=== PATIENT | female | born 1955 | race Caucasian/White ===

== ENCOUNTER 2023-05-07 08:06 | Emergency (ER) | payer MEDICARE ==
[2023-05-07] MEDS ORDERED: Albuterol/Ipratropium 3.0-0.5 MG/3 ML Neb Soln ONE (08:20)
[2023-05-07] MEDS ORDERED: Albuterol/Ipratropium 3.0-0.5 MG/3 ML Neb Soln NEB ONE (08:23)
[2023-05-07] MEDS ORDERED: predniSONE 20 MG Tab PO ONE (08:24)
== END 2023-05-07 09:00 | disposition home or self-care (01) ==
LOC: DL.ED 08:06
DX: R06.2 Wheezing (principal); I11.0 Hypertensive heart disease with heart failure; I50.9 Heart failure, unspecified; J44.9 Chronic obstructive pulmonary disease, unspecified; K21.9 Gastro-esophageal reflux disease without esophagitis; Z79.899 Other long term (current) drug therapy; Z79.82 Long term (current) use of aspirin; Z88.1 Allergy status to other antibiotic agents; Z88.5 Allergy status to narcotic agent
CPT/HCPCS: 94010; 94640; 94667; 99283; 99284; J7512; J7620-GY

== ENCOUNTER 2023-05-26 06:22 | Day surgery (SDC) | payer MEDICARE ==
[~2023-05-26 06:22] MED LIST: Dextrose 5%-0.45% NaCl 1,000 ML IV SCH
[2023-05-26] MEDS ORDERED: Midazolam 1 MG/ML 2 ML SDV ONE (06:43)
[2023-05-26] MEDS ORDERED: fentaNYL 100 MCG/2 ML SDV ONE (06:43)
[2023-05-26] MEDS ORDERED: fentaNYL 100 MCG/2 ML SDV IV ONE ×2 (07:22→07:23)
[2023-05-26] MEDS ORDERED: Midazolam 1 MG/ML 2 ML SDV IV ONE ×2 (07:24→07:25)
== END 2023-05-26 08:56 | disposition home or self-care (01) ==
LOC: DL.ENDO 06:22
PROVIDERS: ATTEND Internal Medicine Gastroenterology
DX: K29.50 Unspecified chronic gastritis without bleeding (principal); Z98.84 Bariatric surgery status; K21.9 Gastro-esophageal reflux disease without esophagitis; F41.9 Anxiety disorder, unspecified; E78.5 Hyperlipidemia, unspecified; I27.20 Pulmonary hypertension, unspecified; Z79.899 Other long term (current) drug therapy
CPT/HCPCS: 43239; 87077; 88305; 88342; J2250; J3010; J7042

== ENCOUNTER 2023-10-11 12:59 | Emergency (ER) | payer MEDICARE ==
[2023-10-11] MEDS: Metoclopramide 10 MG/2 ML SDV IM ONE (16:13)
== END 2023-10-11 16:37 | disposition home or self-care (01) ==
LOC: DL.ED 12:59
DX: G44.52 New daily persistent headache (NDPH) (principal); I11.0 Hypertensive heart disease with heart failure; I50.9 Heart failure, unspecified; E78.00 Pure hypercholesterolemia, unspecified; J44.9 Chronic obstructive pulmonary disease, unspecified; K21.9 Gastro-esophageal reflux disease without esophagitis; F17.210 Nicotine dependence, cigarettes, uncomplicated; Z86.16 Personal history of COVID-19; Z88.8 Allergy status to other drugs, medicaments and biological substances; Z88.5 Allergy status to narcotic agent; Z79.82 Long term (current) use of aspirin; Z79.51 Long term (current) use of inhaled steroids; Z79.899 Other long term (current) drug therapy; Z90.49 Acquired absence of other specified parts of digestive tract
CPT/HCPCS: 96372; 99283; J2765

== ENCOUNTER 2024-01-24 08:06 | Emergency (ER) | payer MEDICARE ==
[2024-01-24] MEDS ORDERED: Sodium Chloride 0.9% 10 ML Syringe FLUSH PRN ×2 (08:26→08:35)
[2024-01-24 08:34] LABS: BASOPHILS PERCENT AUTO 0.2 % (0.0-1.0); EOSINOPHILS PERCENT AUTO 2.4 % (1.0-3.0); HEMATOCRIT 49.7 % (37.0-47.0); HEMOGLOBIN 16.2 g/dL (12.0-16.0); LYMPHOCYTES PERCENT AUTO 24.3 % (20.5-50.1); MEAN CORPUSCULAR HEMOGLOBIN 32.4 pg (27.0-34.0); MEAN CORPUSCULAR HGB CONC 32.6 g/dL (33.0-35.0); MEAN CORPUSCULAR VOLUME 99.4 fL (80-100); MONOCYTES PERCENT AUTO 6.3 % (2-8); NEUTROPHILS PERCENT AUTO 66.8 % (42.2-75.2); PLATELET COUNT,PLT 223 10^3/uL (150-450); WHITE BLOOD CELL COUNT,WBC 8.7 10^3/uL (5.0-10.0)
[2024-01-24] MEDS: Aspirin 81 MG Tab.Chew PO ONE (08:37)
[2024-01-24] MEDS: Heparin Sodium 5,000 Units/ML Vial IVPUSH ONE (08:47)
[2024-01-24 08:49] LABS: A/G RATIO 0.92; ALANINE AMINOTRANSFERASE,ALT 18 U/L (14-59); ALBUMIN 3.3 g/dL (3.4-5.0); ALKALINE PHOSPHATASE 93 U/L (46-116); ANION GAP 12.6 mEq/L (7-13); ASPARTATE AMNIOTRANSFERASE,AST 24 U/L (15-37); BILIRUBIN TOTAL 0.5 mg/dL (0.2-1.0); BLOOD UREA NITROGEN,BUN 19 mg/dL (7-18); BUN/CREATININE RATIO 17.9 (No establ ref range); CALCIUM 9.2 mg/dL (8.5-10.1); CARBON DIOXIDE,CO2 30 mmol/L (21-32); CHLORIDE,CL 103 mmol/L (98-107); CREATININE 1.06 mg/dL (0.55-1.02); ESTIMATED GFR 57 mL/min (>=60); GLUCOSE RANDOM 113 mg/dL (70-99); LIPASE 25 U/L (16-77); POTASSIUM,K 4.6 mmol/L (3.5-5.1); PROTEIN TOTAL,TP 6.9 g/dL (6.4-8.2); SODIUM,NA 141 mmol/L (136-145)
[2024-01-24] MEDS ORDERED: Heparin Sodium/0.45% NaCl 500 ML ONE (08:51)
[2024-01-24 08:52] LABS: B-TYPE NATRIURETIC PEPTIDE,BNP 141 pg/ml (0-100)
[2024-01-24] MEDS: Heparin Sodium/0.45% NaCl 25,000 UNITS/500 ML BAG IV SCH (09:00)
[2024-01-24 09:02] LABS: PROTHROMBIN TIME 10.4 SEC (9.0-12.0); PTT,PARTIAL THROMBOPLSTIN TIME 27.2 SEC (22.0-34.0)
== END 2024-01-24 10:14 ==
LOC: DL.ED 08:06
DX: I21.3 ST elevation (STEMI) myocardial infarction of unspecified site (principal); I11.0 Hypertensive heart disease with heart failure; I50.9 Heart failure, unspecified; E78.00 Pure hypercholesterolemia, unspecified; J44.9 Chronic obstructive pulmonary disease, unspecified; K21.9 Gastro-esophageal reflux disease without esophagitis; M19.90 Unspecified osteoarthritis, unspecified site; Z90.49 Acquired absence of other specified parts of digestive tract; Z79.899 Other long term (current) drug therapy; Z79.82 Long term (current) use of aspirin; Z88.8 Allergy status to other drugs, medicaments and biological substances
CPT/HCPCS: 36415; 71045; 80053; 83690; 83880; 84484; 85025; 85610; 85730; 93005; 93010; 96365; 99285; 99285-25; A9270-GY; J1644

== ENCOUNTER 2024-04-25 17:15 | Emergency (ER) | payer MEDICARE ==
[2024-04-25 18:41] LABS: BASOPHILS PERCENT AUTO 0.2 % (0.0-1.0); HEMATOCRIT 43.9 % (37.0-47.0); HEMOGLOBIN 14.2 g/dL (12.0-16.0); LYMPHOCYTES PERCENT AUTO 18.8 % (20.5-50.1); MEAN CORPUSCULAR HEMOGLOBIN 32.1 pg (27.0-34.0); MEAN CORPUSCULAR HGB CONC 32.3 g/dL (33.0-35.0); MEAN CORPUSCULAR VOLUME 99.1 fL (80-100); MONOCYTES PERCENT AUTO 6.2 % (2-8); NEUTROPHILS PERCENT AUTO 73.8 % (42.2-75.2); PLATELET COUNT,PLT 215 10^3/uL (150-450); RED BLOOD CELL COUNT 4.43 10^6/uL (4.2-5.4); WHITE BLOOD CELL COUNT,WBC 9.5 10^3/uL (5.0-10.0)
[2024-04-25 18:59] LABS: PROTHROMBIN TIME 9.9 SEC (9.0-12.0); PTT,PARTIAL THROMBOPLSTIN TIME 25.6 SEC (22.0-34.0)
[2024-04-25 19:01] LABS: ALANINE AMINOTRANSFERASE,ALT 14 U/L (14-59); ALBUMIN 3.5 g/dL (3.4-5.0); ALKALINE PHOSPHATASE 91 U/L (46-116); ANION GAP 7.3 mEq/L (7-13); ASPARTATE AMNIOTRANSFERASE,AST 17 U/L (15-37); BILIRUBIN TOTAL 0.5 mg/dL (0.2-1.0); BLOOD UREA NITROGEN,BUN 17 mg/dL (7-18); BUN/CREATININE RATIO 16.7 (No establ ref range); CALCIUM 9.3 mg/dL (8.5-10.1); CARBON DIOXIDE,CO2 35 mmol/L (21-32); CHLORIDE,CL 102 mmol/L (98-107); CREATININE 1.02 mg/dL (0.55-1.02); GLUCOSE RANDOM 94 mg/dL (70-99); POTASSIUM,K 4.3 mmol/L (3.5-5.1); PROTEIN TOTAL,TP 6.9 g/dL (6.4-8.2); SODIUM,NA 140 mmol/L (136-145); URIC ACID 5.1 mg/dL (2.6-6.0)
[2024-04-25 19:02] LABS: C-REACTIVE PROTEIN < 0.50 ng/dL (<=0.50); ESTIMATED GFR 60 mL/min (>=60)
[2024-04-25 19:04] LABS: B-TYPE NATRIURETIC PEPTIDE,BNP 111 pg/ml (0-100)
== END 2024-04-25 19:39 | disposition home or self-care (01) ==
LOC: DL.ED 17:15
DX: R60.0 Localized edema (principal); I11.0 Hypertensive heart disease with heart failure; I50.9 Heart failure, unspecified; E78.00 Pure hypercholesterolemia, unspecified; J44.9 Chronic obstructive pulmonary disease, unspecified; K21.9 Gastro-esophageal reflux disease without esophagitis; F17.200 Nicotine dependence, unspecified, uncomplicated; Z90.49 Acquired absence of other specified parts of digestive tract; Z79.82 Long term (current) use of aspirin; Z79.2 Long term (current) use of antibiotics; Z79.899 Other long term (current) drug therapy; Z79.51 Long term (current) use of inhaled steroids; Z88.6 Allergy status to analgesic agent; Z88.8 Allergy status to other drugs, medicaments and biological substances
CPT/HCPCS: 36415; 80053; 83880; 84550; 85025; 85379; 85610; 85730; 86140; 99283

== ENCOUNTER 2024-11-14 11:42 | Emergency (ER) | payer MEDICARE ==
[2024-11-14] MEDS: Take Home: Acetaminophen/oxyCODONE 325-5 MG, 5 Tab Pack PO ONE (13:41)
== END 2024-11-14 13:43 | disposition home or self-care (01) ==
LOC: DL.ED 11:42
DX: S80.11XA Contusion of right lower leg, initial encounter (principal); I11.0 Hypertensive heart disease with heart failure; I50.9 Heart failure, unspecified; E78.00 Pure hypercholesterolemia, unspecified; J44.9 Chronic obstructive pulmonary disease, unspecified; M19.90 Unspecified osteoarthritis, unspecified site; K21.9 Gastro-esophageal reflux disease without esophagitis; Z88.8 Allergy status to other drugs, medicaments and biological substances; Z79.899 Other long term (current) drug therapy; Z79.82 Long term (current) use of aspirin; Z79.51 Long term (current) use of inhaled steroids; Z90.49 Acquired absence of other specified parts of digestive tract; W18.2XXA Fall in (into) shower or empty bathtub, initial encounter
CPT/HCPCS: 73590; 73610; 99282; 99283; A9270

== ENCOUNTER 2024-12-05 06:55 | Emergency (ER) | payer MEDICARE ==
[2024-12-05] MEDS: Iopamidol 755 Mg/ML 100 ML Bottle IVPUSH ONE (07:04)
[2024-12-05] MEDS ORDERED: Sodium Chloride 0.9% 10 ML Syringe FLUSH PRN (07:05)
[2024-12-05 07:12] LABS: BASOPHILS PERCENT AUTO 0.1 % (0.0-1.0); EOSINOPHILS PERCENT AUTO 1.9 % (1.0-3.0); HEMOGLOBIN 14.8 g/dL (12.0-16.0); LYMPHOCYTES PERCENT AUTO 23.2 % (20.5-50.1); MEAN CORPUSCULAR HEMOGLOBIN 32.4 pg (27.0-34.0); MEAN CORPUSCULAR HGB CONC 32.2 g/dL (33.0-35.0); MEAN CORPUSCULAR VOLUME 100.7 fL (80-100); MONOCYTES PERCENT AUTO 6.9 % (2-8); NEUTROPHILS PERCENT AUTO 67.9 % (42.2-75.2); PLATELET COUNT,PLT 218 10^3/uL (150-450); RED BLOOD CELL COUNT 4.57 10^6/uL (4.2-5.4); WHITE BLOOD CELL COUNT,WBC 7.3 10^3/uL (5.0-10.0)
[2024-12-05 07:31] LABS: PROTHROMBIN TIME 10.2 SEC (9.0-12.0)
[2024-12-05 07:38] LABS: A/G RATIO 0.83; ALANINE AMINOTRANSFERASE,ALT 18 U/L (14-59); ALBUMIN 2.9 g/dL (3.4-5.0); ALKALINE PHOSPHATASE 79 U/L (46-116); ANION GAP 8.2 mEq/L (7-13); ASPARTATE AMNIOTRANSFERASE,AST 18 U/L (15-37); BILIRUBIN TOTAL 0.5 mg/dL (0.2-1.0); BLOOD UREA NITROGEN,BUN 20 mg/dL (7-18); BUN/CREATININE RATIO 16.5 (No establ ref range); C-REACTIVE PROTEIN 0.67 ng/dL (<=0.50); CALCIUM 8.8 mg/dL (8.5-10.1); CARBON DIOXIDE,CO2 35 mmol/L (21-32); CHLORIDE,CL 101 mmol/L (98-107); CREATININE 1.21 mg/dL (0.55-1.02); ESTIMATED GFR 49 mL/min (>=60); GLUCOSE RANDOM 96 mg/dL (70-99); MAGNESIUM 1.9 mg/dL (1.8-2.4); POTASSIUM,K 5.2 mmol/L (3.5-5.1); PROTEIN TOTAL,TP 6.4 g/dL (6.4-8.2); SODIUM,NA 139 mmol/L (136-145)
[2024-12-05] MEDS: Sodium Chloride 0.9% 1,000 ML IV ONE (08:00)
[2024-12-05 08:29] LABS: APPEARANCE,URINE CLEAR (CLEAR); BILIRUBIN,URINE NEGATIVE (NEGATIVE); COLOR,URINE YELLOW (YELLOW); GLUCOSE,URINE NEGATIVE (NEGATIVE); KETONES,URINE NEGATIVE (NEGATIVE); LEUKOCYTE ESTERASE,URINE NEGATIVE (NEGATIVE); NITRITE,URINE NEGATIVE (NEGATIVE); OCCULT BLOOD,URINE NEGATIVE (NEGATIVE); PH,URINE 7.5 (5.0-9.0); PROTEIN,URINE NEGATIVE (NEGATIVE); UROBILINOGEN,URINE 0.2 mg/dL (0.2-1.0)
[2024-12-05] MEDS: Acetaminophen 500 MG Tab PO ONE (08:30)
[2024-12-05] MEDS: Ketorolac 30 MG/ML SDV IVPUSH ONE (08:32)
== END 2024-12-05 09:50 | disposition home or self-care (01) ==
LOC: DL.ED 06:55
DX: R20.2 Paresthesia of skin (principal); I25.10 Atherosclerotic heart disease of native coronary artery without angina pectoris; I10 Essential (primary) hypertension; I25.2 Old myocardial infarction; J44.9 Chronic obstructive pulmonary disease, unspecified; K21.9 Gastro-esophageal reflux disease without esophagitis; Z90.49 Acquired absence of other specified parts of digestive tract; Z88.8 Allergy status to other drugs, medicaments and biological substances; Z79.51 Long term (current) use of inhaled steroids; Z79.899 Other long term (current) drug therapy
CPT/HCPCS: 36415; 70450; 70496; 70498; 80053; 81003; 82947; 83735; 84484; 85025; 85610; 86140; 93005; 96374; 99284; A9270; J1885; J7030; Q9967